=== PATIENT | male | born 1950 | race Caucasian/White ===

== ENCOUNTER 2020-09-06 09:56 | Day surgery (SDCO) | payer OTHER ==
[~2020-09-06] VITALS: Ht 177.8 cm; Wt 113.6 kg
[~2020-09-06 09:56] MED LIST: AMARYL2 MG PO; ASPIRIN CHEWABL81 MG PO; AUGMENTIN 875-1 EACH PO; BRILINTA60 MG PO; CLINDAMYCIN 15150 MG PO; KEFLEX250 MG PO; METFORMIN HCL500 MG PO; REPATHA SY140 MG/1 M IJ; TENORMIN50 MG PO; UROCIT-K10 MEQ PO; ZETIA10 MG PO; ZOFRAN4 MG PO
[2020-09-06 10:38] LABS: BASOPHIL 0.4 % (0-2); EOSINOPHIL 1.1 % (0-7); HCT 48.2 % (42.0-52.0); HGB 16.5 g/dl (13.2-18.0); LYMPHOCYTE 12.1 % (15-48); MCH 31.3 pg (25.0-31.0); MCHC 34.2 g/dL (32.0-36.0); MCV 91.5 fL (78.0-100.0); MONOCYTE 6.8 % (0-12); MPV 10.7 fL (6.0-9.5); NEUTROPHIL 79.3 % (41-80); NRBC 0; PLT 162 K/uL (150-400); RBC 5.27 M/uL (4.70-6.00); RDW 11.9 % (11.5-14.0); WBC 9.9 K/uL (4.0-10.5)
[2020-09-06 10:44] LABS: INR 1.04 (0.9-1.2); PROTHROMBIN TIME 12.9 SECONDS (11.4-13.6); PTT 24.4 SECONDS (22.2-34.7)
[2020-09-06 10:45] LABS: ALBUMIN 3.8 g/dL (3.4-5.0); BILIRUBIN - TOTAL 2.2 mg/dL (0.2-1.0); BUN/CREAT RATIO (CALC) 16.1 RATIO; CREATININE 1.18 mg/dL (0.67-1.17); GLOBULIN (CALCULATION) 3.4 g/dL; POTASSIUM 4.6 mmol/L (3.5-5.1); TOTAL PROTEIN 7.2 g/dL (6.4-8.2)
--- NOTE | 2020-09-06 18:13 | NUR ---
PATIENT RECEIVED FROM ER VIA STRETCHER REPORT FROM [facility] ORIENTED TO ROOM
[2020-09-06] MEDS ORDERED: ASPIRIN EC81 MG PO (18:26)
[2020-09-06] MEDS ORDERED: TENORMIN50 MG PO (18:27)
[2020-09-06] MEDS ORDERED: KEFLEX250 MG PO (18:27)
[2020-09-06] MEDS ORDERED: PLAVIX75 MG PO (18:28)
[2020-09-06] MEDS ORDERED: ZETIA10 MG PO (18:28)
[2020-09-06] MEDS ORDERED: PRINIVIL20 MG PO (18:29)
[2020-09-06] MEDS ORDERED: AMARYL2 MG PO (18:29)
[2020-09-06] MEDS ORDERED: METFORMIN HCL500 MG PO (18:30)
[2020-09-06] MEDS ORDERED: UROCIT-K10 MEQ PO (18:31)
[2020-09-06] MEDS ORDERED: REPATHA SU140 MG/1 M IM ×2 (18:33→18:36)
[2020-09-07 05:52] LABS: BASOPHIL 0.2 % (0-2); EOSINOPHIL 0.1 % (0-7); HCT 46.1 % (42.0-52.0); HGB 15.8 g/dl (13.2-18.0); MCH 31.3 pg (25.0-31.0); MCHC 34.3 g/dL (32.0-36.0); MCV 91.3 fL (78.0-100.0); MONOCYTE 7.5 % (0-12); MPV 10.8 fL (6.0-9.5); NEUTROPHIL 84.7 % (41-80); NRBC 0; PLT 155 K/uL (150-400); RBC 5.05 M/uL (4.70-6.00); WBC 9.6 K/uL (4.0-10.5)
[2020-09-07 06:08] LABS: ALBUMIN 3.4 g/dL (3.4-5.0); BUN/CREAT RATIO (CALC) 13.2 RATIO; CREATININE 1.21 mg/dL (0.67-1.17); GLOBULIN (CALCULATION) 3.2 g/dL; MAGNESIUM 1.8 mg/dL (1.8-2.4); POTASSIUM 4.3 mmol/L (3.5-5.1); TOTAL PROTEIN 6.6 g/dL (6.4-8.2)
[2020-09-07 06:11] LABS: BILIRUBIN - TOTAL 4.5 mg/dL (0.2-1.0)
[2020-09-08 10:11] LABS: HBSAG SCREEN Negative (Negative); HEP A AB, IGM Negative (Negative); HEP B CORE AB, IGM Negative (Negative); HEP C VIRUS AB 0.1 (0.0-0.9)
== END 2020-09-07 12:00 | disposition other institution (70) ==
LOC: FER 09:56 → FTCU 16:53
PROVIDERS: Emergency Medicine; ADMIT Internal Medicine
DX: R07.89 Other chest pain (principal); I25.10 Atherosclerotic heart disease of native coronary artery without angina pectoris; R79.89 Other specified abnormal findings of blood chemistry; K80.80 Other cholelithiasis without obstruction; I13.10 Hypertensive heart and chronic kidney disease without heart failure, with stage 1 through stage 4 chronic kidney disease, or unspecified chronic kidney disease; E11.22 Type 2 diabetes mellitus with diabetic chronic kidney disease; N18.9 Chronic kidney disease, unspecified; E78.5 Hyperlipidemia, unspecified; L03.116 Cellulitis of left lower limb; I25.2 Old myocardial infarction; Z95.5 Presence of coronary angioplasty implant and graft; Z88.2 Allergy status to sulfonamides; Z88.8 Allergy status to other drugs, medicaments and biological substances; Z79.82 Long term (current) use of aspirin; Z79.02 Long term (current) use of antithrombotics/antiplatelets; Z79.84 Long term (current) use of oral hypoglycemic drugs; Z79.899 Other long term (current) drug therapy; Z20.822 Contact with and (suspected) exposure to COVID-19
CPT/HCPCS: 36415; 71045; 76705; 80053; 80074; 82248; 82962; 83690; 83735; 84484; 85025; 85379; 85610; 85730; 93005; G0378; J1650; J2270; J2405; Q9967; U0002